=== PATIENT | male | born 1995 | race African-American/Black ===

== ENCOUNTER 2018-07-23 19:40 | Emergency (ER) | payer BC, OTHER ==
--- NOTE | 2018-07-23 20:29 | RAD ---
CHEST PA AND LATERAL: 07/23/18 HISTORY: 22-year-old male with history of chest pain particularly when taking a deep breath. COMPARISON: 10/18/14. FINDINGS: Heart size is normal. The lungs are clear. No pneumonia, edema, or pleural effusion. IMPRESSION: No acute intrathoracic disease. POS: [facility]
== END 2018-07-23 21:27 | disposition home or self-care (01) ==
LOC: ERS 19:40
DX: M94.0 Chondrocostal junction syndrome [Tietze] (principal); F90.9 Attention-deficit hyperactivity disorder, unspecified type; F31.9 Bipolar disorder, unspecified
CPT/HCPCS: 71046; 93005

== ENCOUNTER 2018-12-04 11:45 | Emergency (ER) | payer BC, SELFPAY ==
--- NOTE | 2018-12-04 12:48 | CT ---
FACE CT WITHOUT CONTRAST: HISTORY: Deformity. Right jaw swelling, status post running into a pole yesterday. COMPARISON: None. FINDINGS: Visualized brain parenchyma is unremarkable. Adequate aeration of the visualized sinuses and mastoid air cells. Bilateral zygomatic arches are intact. Symmetric attenuation of the optic nerves and ocular rectus muscles. Symmetric attenuation of the re trobulbar fat. Both globes are intact. Ocular lenses are appropriate located. Symmetric attenuation of the visualized parotid and submandibular glands. Mild fullness of the palatine tonsils as well as the adenoid tonsils. Correlate clinically. Limited evaluation of the oral cavity due to dental amalgam artifact. No obvious masses. Midline fa tty raphae of the tongue is preserved. Unremarkable epiglottis. Bilaterally, osteomeatal complexes are patent. Right-sided haler cell is noted. Intact midline sept um. No fracture with regards to the maxilla or mandible. The mandibular condyles are appropriately locat ed. Osseous margins of the orbits and sinuses are maintained. There is no evidence of significant soft tissue swelling or hematoma on the right aspect of the nandini ble. Nonspecific calcification in the posterior right oral cavity. IMPRESSION: 1. No fracture. 2. Adenoid and palatine tonsil prominence. Correlate clinically. 3. Nonspecific calcification in the posterior right oral cavity. POS: [facility]
== END 2018-12-04 12:55 | disposition home or self-care (01) ==
LOC: ERS 11:45
DX: S00.83XA Contusion of other part of head, initial encounter (principal); F31.9 Bipolar disorder, unspecified; F90.9 Attention-deficit hyperactivity disorder, unspecified type; W22.8XXA Striking against or struck by other objects, initial encounter
CPT/HCPCS: 70486

== ENCOUNTER 2018-12-24 19:49 | Emergency (ER) | payer BC ==
--- NOTE | 2018-12-24 20:10 | RAD ---
TWO VIEWS CHEST: 12/24/18 PROVIDED CLINICAL HISTORY: Chest pain. FINDINGS: Cardiac and mediastinal silhouette is within normal limits. Lungs appear clear. No pleural fluid or p neumothorax apparent. IMPRESSION: No evidence for an acute cardiopulmonary process. POS: [facility]
== END 2018-12-24 21:38 | disposition home or self-care (01) ==
LOC: ERS 19:49
DX: J30.2 Other seasonal allergic rhinitis (principal); M94.0 Chondrocostal junction syndrome [Tietze]; F90.9 Attention-deficit hyperactivity disorder, unspecified type; F31.9 Bipolar disorder, unspecified
CPT/HCPCS: 71046

== ENCOUNTER 2019-03-28 14:58 | Emergency (ER) | payer BC ==
[2019-03-28] MEDS ORDERED: Ondansetron ODT 4 MG TAB ONE (15:05)
[2019-03-28 15:59] LABS: #Eosinphils 0.2 thou/uL (0.0-0.7); #Lymphocytes 1.9 thou/uL (1.20-3.40); #Monocytes 0.6 thou/uL (0.11-0.59); %Basophils 0.6 % (0.0-1.0); %Eosinophils 2.3 % (0.0-10.0); %Monocytes 7.2 % (0.0-10.0); %Neutrophils 64.9 % (42.0-75.0); Hemoglobin 13.5 g/dL (14.0-18.0); Mean Corpuscular Hemoglobin 23.2 pg (27.0-31.0); Mean Corpuscular Volume 74.8 fL (78.0-98.0); Platelet Count 175 thou/uL (130-400); Red Blood Cell (RBC) Count 5.83 mill/uL (4.70-6.10); White Blood Cell (WBC) Count 7.7 thou/uL (4.8-10.8)
[2019-03-28 16:12] LABS: Hypochromia SLIGHT = 6-15 cells (100X) (0-5/hpf); MDiff Complete? YES; Microcytosis SLIGHT = 6-15 cells (100X) (0-5/hpf); Platelet Morphology Comment Appears Adequate
[2019-03-28 16:23] LABS: ALT (SGPT) 15 U/L (8-55); AST (SGOT) 17 U/L (5-34); Albumin 4.5 g/dL (3.5-5.0); Alkaline Phosphatase 48 U/L (40-150); Anion Gap 10 mmol/L (10-20); BUN (Urea Nitrogen) 14 mg/dL (8.9-20.6); Bilirubin, Total 0.8 mg/dL (0.2-1.2); Calc. Creatinine Clearance 0 mL/min (70-130); Carbon Dioxide 29 mmol/L (22-29); Chloride 103 mmol/L (98-107); Estimated GFR-MDRD Greater than 90; Globulin 2.7 g/dL (2.4-3.5); Glucose 90 mg/dL (70-105); Lipase 25 U/L (8-78); Potassium 4.1 mmol/L (3.5-5.1); Protein, Total 7.2 g/dL (6.0-8.3); Sodium 138 mmol/L (136-145)
[2019-03-28 16:47] LABS: Bacteria/HPF None Seen HPF (None Seen); Bilirubin Negative (Negative); Blood, Urine Negative (Negative); Clarity Clear (Clear); Glucose, Urine (Dipstick) Normal (Negative); Leukocyte 75 Leu/uL (Negative); Nitrite Negative (Negative); Protein, Urine (Dipstick) Negative (Neg-Trace); RBC/HPF 0-3 HPF (0-3); Squamous Epithelial None Seen HPF (0-3); WBC/HPF 21-50 HPF (0-3)
== END 2019-03-28 17:12 | disposition home or self-care (01) ==
LOC: ERS 14:58
DX: R11.2 Nausea with vomiting, unspecified (principal); F31.9 Bipolar disorder, unspecified; F90.9 Attention-deficit hyperactivity disorder, unspecified type
CPT/HCPCS: 36415; 80053; 81003; 81015; 83690; 85025; 99284; Q0162